=== PATIENT | female | born 1990 | race Asian ===

== ENCOUNTER 2024-04-09 00:51 | Emergency (ER) | payer OTHER, SELFPAY ==
--- NOTE | 2024-04-09 | ECG_ITS ---
Test Reason : SOB Blood Pressure : / mmHG Vent. Rate : 068 BPM Atrial Rate : 068 BPM P-R Int : 150 ms QRS Dur : 084 ms QT Int : 368 ms P-R-T Axes : 061 056 055 degrees QTc Int : 391 ms Normal sinus rhythm Normal ECG No previous ECGs available Referred By: Generic ED Physician Electronically Signed By:JUDY BEE MD
--- NOTE | ~2024-04-09 | XR_ITS ---
CLINICAL HISTORY: sob 1 view chest x-ray. Comparison: None Findings: The lungs appear clear. There is no consolidation, effusion, or pneumothorax. Cardiomediastinal silhouette is within normal limits. IMPRESSION: No acute cardiopulmonary abnormality. This document has been electronically signed by: Johnathon Loco MD on 04/09/2024 02:44:58
[2024-04-09 00:55] VITALS: BP 102/66; PULSE 87; O2SAT 98
[2024-04-09 01:01] VITALS: BP 108/69; PULSE 76; RESP 16; TEMP 36.9; O2SAT 100; BMI 25.2
[2024-04-09 01:29] LABS: Basophils Percent Auto 0.5 % (0-2); Eosinophils Absolute Auto 0.1 X10*3/uL (0.0-0.4); Eosinophils Percent Auto 0.9 % (0-4); Hematocrit 38.7 % (37.0-47.0); Hemoglobin 13.4 g/dl (12.0-16.0); Imm Gran Abs Auto 0.01 X10*3/uL (0.00-0.03); Imm Gran Pct Auto 0.2 % (0.0-0.4); Lymphocytes Absolute Auto 1.8 X10*3/uL (1.2-4.9); Lymphocytes Percent Auto 26.7 % (20-40); MANUAL DIFF FLAG NO; Mean Corpuscular HGB Conc 34.6 g/dl (31.0-35.0); Mean Corpuscular Volume 86.8 fL (80.0-98.0); Mean Platelet Volume 10.3 fL (9.4-12.3); Monocytes Absolute Auto 0.5 X10*3/uL (0.1-1.2); Monocytes Percent Auto 7.7 % (2-11); Neutrophils Absolute Auto 4.3 x10*3/uL (2.0-8.3); Platelet Count 189 X10*3/uL (160-400); Red Blood Count 4.46 X10*6/uL (4.20-5.50); Red Cell Distribution Width 13.1 % (11.0-16.0); White Blood Count 6.7 X10*3/uL (4.8-10.8)
[2024-04-09 01:46] LABS: Alanine Aminotransferase 11 U/L (0-31); Anion Gap 9 (12-20); Aspartate Amino Transferase 16 U/L (5-31); Bilirubin Total 0.5 mg/dL (0.0-1.0); Blood Urea Nitrogen 14 mg/dL (9-16); Carbon Dioxide 22 mmol/L (22-29); Chloride 109 mmol/L (96-108); Creatinine Clr Calc Pharmacy 108.4; Estimated Glomerular Filt Rate > 60; Glucose Random 119 mg/dL (60-115); Potassium 3.7 mmol/L (3.3-5.1); Sodium 136 mmol/L (135-145); Total Protein 6.5 g/dL (6.5-8.0)
[2024-04-09 01:50] LABS: Troponin-I High Sensitivity < 2.7 ng/L (<3.5-17.0)
[2024-04-09 02:06] LABS: Influenza A PCR NEGATIVE (Negative); Influenza B PCR NEGATIVE (Negative); Resp Syncy Virus RNA Qual PCR NEGATIVE (Negative); SARS COV2 PCR INHOUSE NEGATIVE (Negative)
[2024-04-09 02:35] LABS: Alkaline Phosphatase 41 U/L (39-117)
[2024-04-09 03:45] VITALS: BP 112/70; PULSE 69; RESP 16; TEMP 36.9; O2SAT 97
[2024-04-09 06:17] VITALS: BP 103/58; PULSE 55; RESP 16; TEMP 36.9; O2SAT 100
--- NOTE | 2024-04-09 07:23 | PC.NURSE ---
repeat troponin obtaine/sent to lab.
--- NOTE | 2024-04-09 07:23 | PC.NURSE ---
this RN resumed care of pt at 0645. a&ox4. vss and up to date. nsr on the retail loan officer. pt presents to the ED c/o dyspnea/dizziness/lightheadedness that occurred while pt was getting ready to go to bed. pt reports hx of vertigo but denies any syncopal episode. 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 repeat troponin obtained/sent to lab. pt still verbalizes feeling sob. no sob/wob noted. pt positioned upright to promote patent airway. respirations even/unlabored. lights dimmed to promote comfort. plan of care ongoing. call winston placed within reach.
--- NOTE | 2024-04-09 07:40 | ED.GENADULT ---
HPI - General Adult General Chief complaint: General Medical Stated complaint: diff breathing, dizziness, weakness, near syncope Time Seen by Provider: 04/09/24 06:32 Source: patient Mode of arrival: ambulatory Limitations: no limitations History of Present Illness ED Provider: Sophia Newton APRN HPI narrative: 33 yo female with history of vertigo presents the ER with complaints of episode of shortness of breath with associated right arm numbness, dizziness and nausea at 1230am which lasted for approximately 10-15 minutes while at rest. There was no associated Headache, chest pain, vomiting, diaphoresis. No fevers, chills, leg swelling or leg pain. Patient reports she had RSV a few weeks ago and still has a lingering cough and feels like she has fluid in her ears. She also reports that she has been having some bloating and constipation over the last week. No abdominal pain for vomiting. She reports that this has been a chronic problem for her and she did take some tea with cumin last night to help her move her bowels. Patient denies any sick contact. No recent travel. No oral hormone use. Related Data Previous Rx's ?Medication ?Instructions ?Recorded docusate sodium 100 mg capsule 100 mg PO DAILY #30 caps 04/09/24 (Colace) fluticasone propionate 50 1 spray intranasal DAILY #16 grams 04/09/24 mcg/actuation nasal spray,suspension (Flonase Allergy Relief) polyethylene glycol 3350 17 17 g PO DAILY #238 grams 04/09/24 gram/dose oral powder (Miralax) psyllium husk 3.4 gram/5.4 gram 1 tbsp PO DAILY #660 grams 04/09/24 oral powder (Metamucil) Allergies Allergy/AdvReac Type Severity Reaction Status Date / Time No Known Allergies Allergy Verified 04/09/24 01:02 Review of Systems Review of Systems: Yes all other systems are reviewed and are negative Constitutional: Constitutional: Reports no additional constitutional complaints, Denies body ache(s), Denies chills, Denies fever(s), Denies headache(s) and Reports weakness Eyes: Eyes: Reports no additional eye complaints and Denies change in vision ENT: Reports system reviewed and no additional complaints, except as documented, Reports dizziness, Denies headache(s), Denies nasal congestion, Denies nasal discharge and Denies neck pain Cardiovascular: Cardiovascular: Reports no additional cardiovascular complaints, Denies chest pain, Denies leg edema and Reports dyspnea Respiratory: Respiratory: Reports no additional respiratory complaints, Reports cough and Reports dyspnea Gastrointestinal: Gastrointestinal: Reports no additional gastrointestinal complaints, Denies abdominal pain, Reports constipation, Denies diarrhea, Denies nausea and Denies vomiting Genitourinary: Genitourinary: Reports no additional female genitourinary complaints and Denies urinary incontinence Musculoskeletal: Musculoskeletal: Reports no additional musculoskeletal complaints, Denies back pain, Denies arthralgias, Denies joint swelling, Denies neck pain, Reports numbness and Denies tingling Integumentary/Breasts: Skin/Breast: Reports system reviewed and no additional complaints, except as docu and Denies rash Neurologic: Reports system reviewed and no additional complaints, except as documented, Denies Abnormal speech present, Reports dizziness, Denies headache(s), Reports numbness, Denies tingling and Reports weakness PMFSH Past Medical History Attestation statement: The following information was validated with the patient. Source: old records reviewed and nursing notes reviewed Social History Social History Smoked in Last 30 Days: No Use of substances other than those prescribed or required for medical reasons: No Advance Directives: No Do you have a plan to hurt others: No Plan Patient : No Physical Exam ED Vital Signs: Vital Signs - 24 hr 04/09/24 01:01 04/09/24 03:45 04/09/24 06:17 Temperature 98.5 F 98.4 F 98.4 F Pulse Rate 76 69 55 Respiratory Rate 16 16 16 Blood Pressure 108/69 112/70 103/58 L Pulse Oximetry 100 97 100 Oxygen Delivery Method Room Air Room Air Room Air 04/09/24 08:08 Temperature 98.4 F Pulse Rate 55 Respiratory Rate 16 Blood Pressure 103/58 L Pulse Oximetry 100 Oxygen Delivery Method Room Air BMI result Body Mass Index 25.2 Const General: cooperative, healthy appearing, comfortable and no acute distress Orientation/consciousness: patient oriented x3 Limitations: no limitations HENMT Head: Yes normal to inspection Ears: hearing grossly normal bilaterally and TM abnormal (bilateral) bulging; not erythematous General nose exam: Normal external nose present Face and sinus: Yes normal facial exam Mouth: Normal oral and palatal mucosa present Throat: Yes posterior oropharynx normal, Yes tonsils normal and Yes uvula midline Eyes General: appearance normal, both eyes and all related structures Pupils: Equal, round and reactive pupils present Neck Neck: Yes normal visual inspection, Yes full ROM, Yes no lymphadenopathy and Yes no meningeal signs Chest Chest palpation & inspection: normal inspection of the chest Resp Effort & Inspection: normal respiratory effort Auscultation: clear to auscultation bilaterally Cardio Rate: regular rate Rhythm: regular rhythm Peripheral pulses: Peripheral pulses 2+ throughout GI Inspection: Yes normal to inspection Palpation (GI): Soft to palpation and nontender Auscultation: normal bowel sounds Back/Spine/Pelvis Thoracic/Lumbar Spine: thoracic and lumbar spine normal to inspection Skin General skin exam: no rashes or lesions noted Neuro General: patient oriented x3, moves all extremities, no meningeal signs, no focal motor deficits and normal sensation to monofilament Cranial nerves: Yes CN's II-XII intact bilaterally, Yes Equal, round and reactive pupils present, Yes Bilaterally intact EOM present, Yes Nystagmus not present, Yes Normal facial strength present and Yes Midline tongue present Cognition (Neuro): normal cognition Speech: No Abnormal speech present Gait exam (Neuro): Normal gait present Motor exam (neuro): 5/5 motor strength present throughout Sensory Exam: Normal double simultaneous stimulation for sensation Extrem General: Yes normal to inspection, Yes no pedal edema and Yes no calf tenderness Course Course Course Narrative: Troponin x2 are flat. EKG is nonischemic. Doubt ACS. Chest x-ray shows no acute finding. Additional labs are negative. Patient has had no symptoms since being here. Recommend she follow up outpatient with the primary care doctor. Reviewed worrisome signs and symptoms of when to return to the emergency room. Comfortable plan for discharge home Medical Decision Making Medical Decision Making MDM Narrative: 33 yo female with history of vertigo here with multiple complaints. 1) Episode of SOB, right arm numbness, dizziness and nausea which occurred at rest for 10-15 min >6 hrs ago. All symptoms resolved. No other associated symptoms. Seems atypical for ACS symptoms are nonexertional and resolved. However I will send troponin x2 and she will have an EKG. PE is less likely as her perc is 0 and she has no risk factors for same. 2) continued cough status post viral infection with fluid in ears. Will send chest x-ray. Lungs are clear. Patient has eustachian tube dysfunction with no evidence of AOM. She takes Claritin daily. Will add Flonase 3) chronic constipation and bloating with no focal abdominal pain. Abdomen is soft nondistended with normal bowel sounds. Recommended bowel regimen. Low suspicion for SBO Differential Diagnosis Differential Diagnoses: The differential diagnosis associated with the presentation includes ACS, PE Low suspicion for aortic dissection, pneumonia Admission/Observation Consideration of admission/observation: Escalation of care including admission/observation considered Lab Data MDM Lab Attestation statement: I reviewed the patient's lab results. 04/09/24 01:24 04/09/24 01:24 Labs: Lab Results 04/09/24 04/09/24 Range/Units 01: 07:21 WBC 6.7 (4.8-10.8) X10*3/uL RBC 4.46 (4.20-5.50) X10*6/uL Hgb 13.4 (12.0-16.0) g/dl Hct 38.7 (37.0-47.0) % MCV 86.8 (80.0-98.0) fL MCH 30.0 (27.0-33.0) pg MCHC 34.6 (31.0-35.0) g/dl RDW 13.1 (11.0-16.0) % Plt Count 189 (160-400) X10*3/uL MPV 10.3 (9.4-12.3) fL Immature Gran % (Auto) 0.2 (0.0-0.4) % Neut % (Auto) 64.0 (45-73) % Lymph % (Auto) 26.7 (20-40) % [place] % (Auto) 7.7 (2-11) % Eos % (Auto) 0.9 (0-4) % Baso % (Auto) 0.5 (0-2) % Lymph # (Auto) 1.8 (1.2-4.9) X10*3/uL [place] # (Auto) 0.5 (0.1-1.2) X10*3/uL Eos # (Auto) 0.1 (0.0-0.4) X10*3/uL Baso # (Auto) 0.0 (0.0-0.2) X10*3/uL Abs Immat Gran (auto) 0.01 (0.00-0.03) X10*3/uL Absolute Neuts (auto) 4.3 (2.0-8.3) x10*3/uL Absolute Nucleated RBC 0.000 (0.0-0.012) X10*3/uL Nucleated RBC % (auto) 0.0 (0.0-0.2) /100WBC Sodium 136 (135-145) mmol/L Potassium 3.7 (3.3-5.1) mmol/L Chloride 109 H (96-108) mmol/L Carbon Dioxide 22 (22-29) mmol/L Anion Gap 9 L (12-20) BUN 14 (9-16) mg/dL Creatinine 0.68 (0.5-1.4) mg/dL Estim Creat Clear Calc 108.4 Estimated GFR > 60 Random Glucose 119 H (60-115) mg/dL Calcium 9.0 (8.4-10.2) mg/dL Total Bilirubin 0.5 (0.0-1.0) mg/dL AST 16 (5-31) U/L ALT 11 (0-31) U/L Alkaline Phosphatase 41 (39-117) U/L Troponin I High Sens < 2.7 < 2.7 (<3.5-17.0) ng/L Total Protein 6.5 (6.5-8.0) g/dL Albumin 4.0 (3.5-5.0) g/dL Influenza Type A (PCR) NEGATIVE (Negative) Influenza Type B (PCR) NEGATIVE (Negative) RSV RNA Qual (PCR) NEGATIVE (Negative) SARS-CoV-2 RNA (RT-PCR) NEGATIVE (Negative) Independent Interpretation I performed an independent interpretation of an: EKG and Plain X-Ray Interpretation: I independently viewed the x-ray and agree with the radiology report I independently viewed the EKG which shows normal sinus rhythm with a rate of 68, normal PA, normal QRS, normal QT Radiology Impression Discussion of test interpretation with radiology: I have reviewed the radiologist's reading. Radiologist Impression: [address] [address] XRay Report Signed Patient: Jet Real MR#: [id number] : 1990 Acct:[id number] Age/Sex: 33 / F ADM Date: 04/09/24 Loc: HO.ED Attending Dr: Ordering Physician: Gabe ED Physician Date of Service: 04/09/24 Procedure(s): XR chest 1V Accession Number(s): [id number] cc: Generic ED Physician; Jelly Haque MD~ CLINICAL HISTORY: sob 1 view chest x-ray. Comparison: None Findings: The lungs appear clear. There is no consolidation, effusion, or pneumothorax. Cardiomediastinal silhouette is within normal limits. IMPRESSION: No acute cardiopulmonary abnormality. This document has been electronically signed by: Johnathon Loco MD on 04/09/2024 02:44:58 Tests considered The following testing was considered but not selected: CTA-see discussion above Discharge Plan Discharge Clinical Impression: Dyspnea, Constipation, Acute dysfunction of both eustachian tubes Patient Disposition: Home, Self-Care Instructions: Constipation (ED), Dyspnea (ED) Additional Instructions: Your labs are reassuring Your chest x-ray shows no acute finding. Your EKG is normal You were tested for flu, COVID and RSV and you are negative Please follow-up with the primary care doctor outpatient In regards to yourr constipation eat a high-fiber diet and increase fluids at home Please return for any new or worsening symptoms Prescriptions: New polyethylene glycol 3350 [Miralax] 17 gram/dose powder 17 g PO DAILY Qty: 238 0RF docusate sodium [Colace] 100 mg capsule 100 mg PO DAILY Qty: 30 0RF Metamucil 3.4 gram/5.4 gram powder 1 tbsp PO DAILY Qty: 660 0RF Rx Instructions: mix into at least 8 oz of water or juice before administering fluticasone propionate [Flonase Allergy Relief] 50 mcg/actuation spray,suspension 1 spray intranasal DAILY Qty: 16 0RF Rx Instructions: administer into each nostril Referrals: Physician,Unknown J [Primary Care Provider] - 1 week Interventions: ED Discharge Assessment Last Done: 04/09/24 08:08 Discharge Date/Time: 04/09/24 08:13 Print Language: [place]alan
[2024-04-09 07:49] LABS: Troponin-I High Sensitivity < 2.7 ng/L (<3.5-17.0)
[2024-04-09 08:08] VITALS: BP 103/58; PULSE 55; RESP 16; TEMP 36.9; O2SAT 100
== END 2024-04-09 08:13 | disposition home or self-care (01) ==
PROVIDERS: Nurse Practitioner Family; Emergency Provider Emergency Medicine
DX: R06.02 Shortness of breath (principal); R42 Dizziness and giddiness; H68.013 Acute Eustachian salpingitis, bilateral; R20.0 Anesthesia of skin; K59.00 Constipation, unspecified; Z03.818 Encounter for observation for suspected exposure to other biological agents ruled out; Z79.899 Other long term (current) drug therapy
CPT/HCPCS: 0241U; 36415; 71045; 80053; 84484; 85025; 93005; 99284

== ENCOUNTER → 2024-04-09 01:16 | Outpatient (BNV) | payer OTHER, SELFPAY | PROVIDERS: Emergency Provider Emergency Medicine; Visit Provider Internal Medicine Cardiovascular Disease | DX: R06.02 Shortness of breath (principal) | CPT/HCPCS: 93010 ==

== ENCOUNTER → 2024-04-09 01:25 | Outpatient (BNV) | payer OTHER, SELFPAY | PROVIDERS: PCP Internal Medicine; Visit Provider Radiology Diagnostic Radiology | DX: R06.02 Shortness of breath (principal) | CPT/HCPCS: 71045 ==

== ENCOUNTER 2024-04-14 08:15 | Emergency (ER) | payer OTHER, SELFPAY ==
--- NOTE | ~2024-04-14 | XR_ITS ---
EXAMINATION: XR CHEST CLINICAL INFORMATION: sob COMPARISON: None available. TECHNIQUE: Frontal view of the chest was obtained. FINDINGS: No significant abnormality is noted involving the heart, lungs, mediastinum, bony thorax or soft tissues. XR/XR chest 1V IMPRESSION: Unremarkable examination. Electronically signed by: Kirby Huddleston MD 04/14/2024 09:31 AM [facility] [place]
--- NOTE | 2024-04-14 08:22 | ED_ITS ---
HPI - General Adult General Chief complaint: Arrhythmia/Palpitations Stated complaint: Unresponsive Time Seen by Provider: 04/14/24 08:19 Source: patient, RN notes reviewed and old records reviewed Mode of arrival: ambulatory History of Present Illness ED Provider: Nadine Elise PA-C HPI narrative: 33-year-old female with a past medical history of vertigo presenting to ED complaining of sudden onset palpitations, SOB, lightheadedness/presyncope, diaphoresis, nausea, headache, and right hand numbness beginning while at rest. Admits symptoms very, lasting minutes. Denies any LOC. Patient reports recurrent intermittent episodes that have been happening multiple times throughout the day since Wednesday. Patient was evaluated in our ED on 04/09/2024 for similar symptoms, had negative workup. States was additionally seen at urgent care on 04/11/2024 and prescribed Hydroxyzine with some relief. Denies vision change/loss, vomiting, focal weakness, abdominal pain, dysuria/hematuria, CP Related Data Previous Rx's ?Medication ?Instructions ?Recorded docusate sodium 100 mg capsule 100 mg PO DAILY #30 caps 04/09/24 (Colace) fluticasone propionate 50 1 spray intranasal DAILY #16 grams 04/09/24 mcg/actuation nasal spray,suspension (Flonase Allergy Relief) polyethylene glycol 3350 17 17 g PO DAILY #238 grams 04/09/24 gram/dose oral powder (Miralax) psyllium husk 3.4 gram/5.4 gram 1 tbsp PO DAILY #660 grams 04/09/24 oral powder (Metamucil) Allergies Allergy/AdvReac Type Severity Reaction Status Date / Time No Known Allergies Allergy Verified 04/14/24 08:28 Review of Systems 2 Review of Systems: Yes all other systems are reviewed and are negative Constitutional: Constitutional: Reports as per HPI Neurologic: Denies Abnormal speech present [facility] Past Medical History Attestation statement: The following information was validated with the patient. Source: old records reviewed Social History Social History Smoked in Last 30 Days: No Use of substances other than those prescribed or required for medical reasons: No Advance Directives: No Advance Directives Information Provided: Yes Do you have a plan to hurt others: No Plan Physical Exam ED Vital Signs: Vital Signs - 24 hr 04/14/24 08:23 04/14/24 09:19 04/14/24 09:25 Temperature 98 F Pulse Rate 72 54 64 Respiratory Rate 17 Blood Pressure 108/64 93/57 L 110/59 L Pulse Oximetry 98 Oxygen Delivery Method Room Air 04/14/24 09:28 Temperature Pulse Rate 66 Respiratory Rate Blood Pressure 113/68 Pulse Oximetry Oxygen Delivery Method BMI result Body Mass Index 27.0 Const General: cooperative, healthy appearing and no acute distress Orientation/consciousness: patient oriented x3 Limitations: no limitations HENMT Head: Yes normal to inspection and Yes atraumatic Ears: hearing grossly normal bilaterally General nose exam: Normal external nose present Face and sinus: Yes normal facial exam Mouth: Normal oral and palatal mucosa present and no drooling Throat: Yes posterior oropharynx normal, Yes tonsils normal, Yes uvula midline, No uvula laterally displaced and No uvular edema Eyes General: appearance normal, both eyes and all related structures Pupils: Equal, round and reactive pupils present EOM: EOMs intact bilaterally Neck Neck: Yes normal visual inspection and Yes no meningeal signs Resp Effort & Inspection: normal respiratory effort and no respiratory distress Auscultation: clear to auscultation bilaterally, no crackles and no wheezes Cardio Rate: regular rate Heart sounds: S1 normal heart sound present and S2 normal heart sound present GI Inspection: Yes normal to inspection Palpation (GI): Soft to palpation, nontender, no guarding and not rigid General: Yes no CVA tenderness Back/Spine/Pelvis Back: no CVA tenderness Skin Rashes: no rashes Wounds: no wounds Neuro General: patient oriented x3, tone normal, moves all extremities, no meningeal signs, no focal motor deficits and CN's II-XI intact bilaterally Cranial nerves: Yes CN's II-XII intact bilaterally, Yes Equal, round and reactive pupils present and Yes Bilaterally intact EOM present Cognition (Neuro): normal cognition Speech: No Abnormal speech present Motor exam (neuro): 5/5 motor strength present throughout, Pronator motor function not present and no tremor noted Coordination: [id number] test normal Romberg Test: Negative Extrem General: Yes normal to inspection Course Course Course Narrative: 1124-- no leukocytosis. Labs otherwise reassuring. Initial troponin negative. UA with RBCs, negative. Not infected. -viral studies negative -chest x-ray unremarkable -1218--troponin x2 negative. Mi unlikely -orthostatic vital signs negative > case discussed with Cardiology, Dr. Mejía, can see patient in outpatient clinic and set up for echo/Holter monitor -TSH WNL Results discussed with patient including worrisome signs and symptoms and strict return precautions, and when to return to the emergency department. They verbalized understanding and feel safe for discharge at this time. Medications Administered Discontinued Medications Generic Name Dose Route Start Last Admin Trade Name Kristie PRN Reason Stop Dose Admin Sodium Chloride 1,000 mls @ 999 mls/hr 04/14/24 08:30 04/14/24 12:36 Ns IV 04/14/24 09:30 Infused .Q1H1M MIRIAM Infusion Medical Decision Making Medical Decision Making [facility] Narrative: 33-year-old female with a past medical history of vertigo presenting to ED complaining of sudden onset palpitations, SOB, lightheadedness/presyncope, diaphoresis, nausea, headache, and right hand numbness beginning while at rest. Admits symptoms very, lasting minutes. On exam vital signs stable, NAD, nontoxic appearing, no focal neuro deficits, lungs CTA, abdomen soft/nontender. Concern for vasovagal vs anxiety vs metabolic/infectious etiologies vs complicated migraine. Lower suspicion for ICH, CVA/TIA, meningitis/encephalitis, PE/ACS. Plan: EKG, labs, UA, orthostatics, IVF, viral testing, re-evaluate Please refer to course for remaining clinical decision making, interpretation of labs/imaging results, and discussions with consultants and/or family members. Differential Diagnosis Differential Diagnoses: The differential diagnosis associated with the presentation includes As above Admission/Observation Consideration of admission/observation: Escalation of care including admission/observation considered Consult Healthcare Provider Management of the patient was discussed with: Home Theater Experience Expert Lab Data [facility] Lab Attestation statement: I reviewed the patient's lab results. 04/14/24 09:14 04/14/24 09:14 Labs: Lab Results 04/14/24 04/14/24 04/14/24 Range/Units 09:12 09:14 10:11 WBC 4.4 L (4.8-10.8) X10*3/uL RBC 4.39 (4.20-5.50) X10*6/uL Hgb 13.0 (12.0-16.0) g/dl Hct 38.6 (37.0-47.0) % MCV 87.9 (80.0-98.0) fL MCH 29.6 (27.0-33.0) pg MCHC 33.7 (31.0-35.0) g/dl RDW 13.1 (11.0-16.0) % Plt Count 158 L (160-400) X10*3/uL MPV 10.5 (9.4-12.3) fL Immature Gran % (Auto) 0.2 (0.0-0.4) % Neut % (Auto) 64.7 (45-73) % Lymph % (Auto) 25.6 (20-40) % [place] % (Auto) 7.0 (2-11) % Eos % (Auto) 1.8 (0-4) % Baso % (Auto) 0.7 (0-2) % Lymph # (Auto) 1.1 L (1.2-4.9) X10*3/uL [place] # (Auto) 0.3 (0.1-1.2) X10*3/uL Eos # (Auto) 0.1 (0.0-0.4) X10*3/uL Baso # (Auto) 0.0 (0.0-0.2) X10*3/uL Abs Immat Gran (auto) 0.01 (0.00-0.03) X10*3/uL Absolute Neuts (auto) 2.9 (2.0-8.3) x10*3/uL Absolute Nucleated RBC 0.000 (0.0-0.012) X10*3/uL Nucleated RBC % (auto) 0.0 (0.0-0.2) /100WBC PT 11.0 (10.9-12.4) SEC INR 0.9 (0.9-1.1) Sodium 140 (135-145) mmol/L Potassium 4.2 (3.3-5.1) mmol/L Chloride 109 H (96-108) mmol/L Carbon Dioxide 28 (22-29) mmol/L Anion Gap 7 L (12-20) BUN 13 (9-16) mg/dL Creatinine 0.75 (0.5-1.4) mg/dL Estim Creat Clear Calc 98.9 Estimated GFR > 60 Random Glucose 80 (60-115) mg/dL Calcium 8.9 (8.4-10.2) mg/dL Magnesium 2.1 (1.6-2.6) mg/dL Total Bilirubin 0.5 (0.0-1.0) mg/dL Direct Bilirubin 0.1 (0.0-0.5) mg/dL AST 30 (5-31) U/L ALT 13 (0-31) U/L Alkaline Phosphatase 40 (39-117) U/L Troponin I High Sens < 2.7 (<3.5-17.0) ng/L Total Protein 6.4 L (6.5-8.0) g/dL Albumin 3.9 (3.5-5.0) g/dL TSH 1.27 (0.32-4.0) uIU/mL Urine Color Yellow Urine Appearance Clear Urine pH 6.5 (5.0-9.0) Ur Specific [place] 1.020 (1.005-1.025) Urine Protein Negative (Neg-Trace) mg/dL Urine Glucose (UA) Negative (Negative) mg/dL Urine Ketones Negative (Negative) mg/dL Urine Blood Small (1+) H (Negative) Urine Nitrite Negative (Negative) Ur Leukocyte Esterase Negative (Negative) Urine RBC 6-10 H (0-2) /HPF Urine WBC 0-5 (0-5) /HPF Ur Squamous Epith Cells 0-2 (0-2) /HPF Urine Bacteria None Seen (None Seen) Hyaline Casts 0-2 (0-2) /LPF Urine Test NEGATIVE (NEGATIVE) Influenza Type A (PCR) NEGATIVE (Negative) Influenza Type B (PCR) NEGATIVE (Negative) RSV RNA Qual (PCR) NEGATIVE (Negative) SARS-CoV-2 RNA (RT-PCR) NEGATIVE (Negative) 04/14/24 Range/Units 11:41 WBC (4.8-10.8) X10*3/uL RBC (4.20-5.50) X10*6/uL Hgb (12.0-16.0) g/dl Hct (37.0-47.0) % MCV (80.0-98.0) fL MCH (27.0-33.0) pg MCHC (31.0-35.0) g/dl RDW (11.0-16.0) % Plt Count (160-400) X10*3/uL MPV (9.4-12.3) fL Immature Gran % (Auto) (0.0-0.4) % Neut % (Auto) (45-73) % Lymph % (Auto) (20-40) % [place] % (Auto) (2-11) % Eos % (Auto) (0-4) % Baso % (Auto) (0-2) % Lymph # (Auto) (1.2-4.9) X10*3/uL [place] # (Auto) (0.1-1.2) X10*3/uL Eos # (Auto) (0.0-0.4) X10*3/uL Baso # (Auto) (0.0-0.2) X10*3/uL Abs Immat Gran (auto) (0.00-0.03) X10*3/uL Absolute Neuts (auto) (2.0-8.3) x10*3/uL Absolute Nucleated RBC (0.0-0.012) X10*3/uL Nucleated RBC % (auto) (0.0-0.2) /100WBC PT (10.9-12.4) SEC INR (0.9-1.1) Sodium (135-145) mmol/L Potassium (3.3-5.1) mmol/L Chloride (96-108) mmol/L Carbon Dioxide (22-29) mmol/L Anion Gap (12-20) BUN (9-16) mg/dL Creatinine (0.5-1.4) mg/dL Estim Creat Clear Calc Estimated GFR Random Glucose (60-115) mg/dL Calcium (8.4-10.2) mg/dL Magnesium (1.6-2.6) mg/dL Total Bilirubin (0.0-1.0) mg/dL Direct Bilirubin (0.0-0.5) mg/dL AST (5-31) U/L ALT (0-31) U/L Alkaline Phosphatase (39-117) U/L Troponin I High Sens < 2.7 (<3.5-17.0) ng/L Total Protein (6.5-8.0) g/dL Albumin (3.5-5.0) g/dL TSH (0.32-4.0) uIU/mL Urine Color Urine Appearance Urine pH (5.0-9.0) Ur Specific [place] (1.005-1.025) Urine Protein (Neg-Trace) mg/dL Urine Glucose (UA) (Negative) mg/dL Urine Ketones (Negative) mg/dL Urine Blood (Negative) Urine Nitrite (Negative) Ur Leukocyte Esterase (Negative) Urine RBC (0-2) /HPF Urine WBC (0-5) /HPF Ur Squamous Epith Cells (0-2) /HPF Urine Bacteria (None Seen) Hyaline Casts (0-2) /LPF Urine Test (NEGATIVE) Influenza Type A (PCR) (Negative) Influenza Type B (PCR) (Negative) RSV RNA Qual (PCR) (Negative) SARS-CoV-2 RNA (RT-PCR) (Negative) Independent Interpretation I performed an independent interpretation of an: EKG (my interpretation EKG normal sinus rhythm rate of 63. MT interval 140. No significant change when compared to prior. No STEMI ) and Plain X-Ray Radiology Impression Discussion of test interpretation with radiology: I have reviewed the radiologist's reading. External Record Review External record reviewed: Inpatient record, Office record, Outpatient record, Prior outpatient labs, Prior outpatient radiology, Primary care record and Outside ED record Tests considered The following testing was considered but not selected: As above Prescription Management I considered prescription management with: Other Chronic Conditions Patient?s care impacted by: Other Social Determinants Patient?s care significantly limited by Social Determinants of Health including: Other Social Determinant of Health Discharge Plan Discharge Clinical Impression: Palpitations, Episodic lightheadedness, Headache Patient Disposition: Home, Self-Care Prescriptions: No Action polyethylene glycol 3350 [Miralax] 17 gram/dose powder 17 g PO DAILY Qty: 238 0RF docusate sodium [Colace] 100 mg capsule 100 mg PO DAILY Qty: 30 0RF Metamucil 3.4 gram/5.4 gram powder 1 tbsp PO DAILY Qty: 660 0RF Rx Instructions: mix into at least 8 oz of water or juice before administering fluticasone propionate [Flonase Allergy Relief] 50 mcg/actuation spray,suspension 1 spray intranasal DAILY Qty: 16 0RF Rx Instructions: administer into each nostril Referrals: [facility] [Provider Group] - 1 week Kavon Haque MD [Primary Care Provider] - 3 days Print Language: Emirati
[2024-04-14 08:23] VITALS: BP 108/64; PULSE 72; RESP 17; TEMP 36.6; O2SAT 98; BMI 27.0
--- NOTE | 2024-04-14 08:30 | ECG_ITS ---
Test Reason : palpitation Blood Pressure : */* mmHG Vent. Rate : 63 BPM Atrial Rate : 63 BPM P-R Int : 140 ms QRS Dur : 82 ms QT Int : 362 ms P-R-T Axes : 60 56 36 degrees QTcB Int : 370 ms Normal sinus rhythm Normal ECG When compared with ECG of 09-Apr-2024 01:16, No significant change was found Referred By: Generic ED Physician Electronically Signed By: EHSAN BELTRAN
--- OUTSIDE RECORDS SUMMARY | 2024-04-14 08:46 | XMS_ITS ---
Author Name [facility] Organization Unknown History of Medication Use Medication Directions Dispensed Refills Start Date End Date Stat us meclizine (ANTIVERT) 25 MG tablet TAKE 1 TABLET (25 MG TOTAL) BY MOUTH 4 TIMES DAILY (EVERY 6 HOURS) NEEDED FOR DIZZINESS. 09/18/2022 active montelukast (SINGULAIR) 10 MG tablet Take 1 tablet (10 mg total) by mouth nightly. 07/02/2022 active ergocalciferol 42784 units Cap Take by mouth. 07/02/2022 active simethicone (Gas-X) 80 MG chewable tablet Chew. 07/02/2022 active fluconazole (diFLUcan) 150 MG tablet TAKE IF DEVELOPE UTI OR ANY FUNGAL INFECTION 09/18/2022 active fluticasone (FloNASE) 50 mcg/spray nasal spray 2 sprays into each nostril daily. 07/02/2022 active polyethylene glycol (MiraLax) 17 GM/SCOOP powder Take by mouth nightly as needed. 07/02/2022 active Problems Problem Status Onset Date Problem Type Date of Resoluti on Source Middle ear effusion, right active EncounterDiagnosisAct CCT Vertigo [facility] Chronic [facility]initis active EncounterDiagnosisAct CCT Nasal turbinate hypertrophy active EncounterDiagnosisAct [facility]
[2024-04-14] MEDS: 0.9 % Sodium Chloride 1,000 ML 999 ML IV (09:17)
[2024-04-14 09:18] LABS: MANUAL DIFF FLAG NO
[2024-04-14 09:19] VITALS: BP 93/57; PULSE 54
[2024-04-14 09:20] LABS: Basophils Percent Auto 0.7 % (0-2); Eosinophils Absolute Auto 0.1 X10*3/uL (0.0-0.4); Eosinophils Percent Auto 1.8 % (0-4); Hematocrit 38.6 % (37.0-47.0); Imm Gran Abs Auto 0.01 X10*3/uL (0.00-0.03); Imm Gran Pct Auto 0.2 % (0.0-0.4); Lymphocytes Absolute Auto 1.1 X10*3/uL (1.2-4.9); Lymphocytes Percent Auto 25.6 % (20-40); Mean Corpuscular HGB Conc 33.7 g/dl (31.0-35.0); Mean Corpuscular Hemoglobin 29.6 pg (27.0-33.0); Mean Corpuscular Volume 87.9 fL (80.0-98.0); Mean Platelet Volume 10.5 fL (9.4-12.3); Monocytes Absolute Auto 0.3 X10*3/uL (0.1-1.2); Neutrophils Absolute Auto 2.9 x10*3/uL (2.0-8.3); Neutrophils Percent Auto 64.7 % (45-73); Platelet Count 158 X10*3/uL (160-400); Red Blood Count 4.39 X10*6/uL (4.20-5.50); Red Cell Distribution Width 13.1 % (11.0-16.0); White Blood Count 4.4 X10*3/uL (4.8-10.8)
[2024-04-14 09:25] VITALS: BP 110/59; PULSE 64
[2024-04-14 09:28] VITALS: BP 113/68; PULSE 66
[2024-04-14 09:28] LABS: INTERNATIONAL NORM RATIO 0.9 (0.9-1.1)
[2024-04-14 09:41] LABS: Alanine Aminotransferase 13 U/L (0-31); Albumin Level 3.9 g/dL (3.5-5.0); Alkaline Phosphatase 40 U/L (39-117); Anion Gap 7 (12-20); Aspartate Amino Transferase 30 U/L (5-31); Bilirubin Direct 0.1 mg/dL (0.0-0.5); Bilirubin Total 0.5 mg/dL (0.0-1.0); Blood Urea Nitrogen 13 mg/dL (9-16); Calcium 8.9 mg/dL (8.4-10.2); Carbon Dioxide 28 mmol/L (22-29); Chloride 109 mmol/L (96-108); Creatinine Clr Calc Pharmacy 98.9; Estimated Glomerular Filt Rate > 60; Glucose Random 80 mg/dL (60-115); Magnesium 2.1 mg/dL (1.6-2.6); Potassium 4.2 mmol/L (3.3-5.1); Sodium 140 mmol/L (135-145); Total Protein 6.4 g/dL (6.5-8.0)
[2024-04-14 09:47] LABS: Troponin-I High Sensitivity < 2.7 ng/L (<3.5-17.0)
[2024-04-14 10:18] LABS: Appearance Urine Clear; Color Urine Yellow; Glucose Urine UA Negative (Negative); Leukocyte Esterase Urine Negative (Negative); Nitrite Urine Negative (Negative); PH 6.5 (5.0-9.0); UMIC TRIGGER UACC YES; Urine Blood Small (1+) (Negative); Urine Ketones Negative (Negative); Urine Protein Negative (Neg-Trace)
[2024-04-14 10:20] LABS: UPreg QC Valid YES; Urine Pregnancy NEGATIVE (NEGATIVE)
[2024-04-14 10:23] LABS: Influenza A PCR NEGATIVE (Negative); Influenza B PCR NEGATIVE (Negative); Resp Syncy Virus RNA Qual PCR NEGATIVE (Negative); SARS COV2 PCR INHOUSE NEGATIVE (Negative)
[2024-04-14 10:23] LABS: Bacteria Urine None Seen (None Seen); Hyaline Casts Urine 0-2 /LPF (0-2); Squamous Epithelial Cell Urine 0-2 /HPF (0-2); WBC Urine 0-5 /HPF (0-5)
[2024-04-14 12:09] LABS: Troponin-I High Sensitivity < 2.7 ng/L (<3.5-17.0)
[2024-04-14 13:06] LABS: TSH reflex Free T4 1.27 uIU/mL (0.32-4.0)
[2024-04-14 13:41] VITALS: BP 103/55; PULSE 70; RESP 18; TEMP 36.8; O2SAT 98
== END 2024-04-14 14:10 | disposition home or self-care (01) ==
PROVIDERS: Physician Assistant; Emergency Provider Emergency Medicine; PCP Student in an Organized Health Care Education/Training Program
DX: I49.9 Cardiac arrhythmia, unspecified (principal); R00.2 Palpitations; R06.02 Shortness of breath; R11.0 Nausea; R51.9 Headache, unspecified; Z79.899 Other long term (current) drug therapy; Z03.818 Encounter for observation for suspected exposure to other biological agents ruled out
CPT/HCPCS: 0241U; 36415; 71045; 80048; 80076; 81001; 81025; 83735; 84443; 84484; 85025; 85610; 93005; 99285

== ENCOUNTER → 2024-04-14 08:30 | Outpatient (BNV) | payer OTHER, SELFPAY | PROVIDERS: Emergency Provider Emergency Medicine; PCP Student in an Organized Health Care Education/Training Program; Visit Provider Internal Medicine | DX: R00.2 Palpitations (principal) | CPT/HCPCS: 93010 ==

== ENCOUNTER → 2024-04-14 08:31 | Outpatient (BNV) | payer OTHER, SELFPAY | PROVIDERS: Emergency Provider Emergency Medicine; PCP Student in an Organized Health Care Education/Training Program; Visit Provider Radiology Diagnostic Radiology | DX: R06.02 Shortness of breath (principal) | CPT/HCPCS: 71045 ==

== ENCOUNTER 2024-04-18 15:06 | Outpatient (AMB) | payer OTHER, SELFPAY ==
[2024-04-18 15:11] VITALS: BP 88/64; PULSE 61; BMI 26.4
--- NOTE | 2024-04-18 15:11 | MHC.OFFVIS ---
Vital Signs 04/18/24 15:11 Height 5 ft 2 in Weight 144 lb 2.917 oz BMI 26.4 BP 88/64 L Blood Pressure Location Lt brachial Position Sitting Pulse 61 Pulse Source Pulse Oximeter Intake Visit Reasons: WR[employer]/vertigo/ palpitations/SOB/lightheaded Intake Note: pt have been having SOB/Chest pain since 04/09 Philosophy Faculty Required: No Accompanied by: Self / Same As Patient Allergies No Known Allergies Allergy (Verified 04/14/24 08:28) Medication List - Last Reconciled 04/18/24 by Anson Sullivan NP docusate sodium (Colace) 100 mg PO DAILY fluticasone propionate 50 mcg/actuation (Flonase Allergy Relief) 1 spray intranasal DAILY hydroxyzine HCl 50 mg PO TID polyethylene glycol 3350 (Miralax) 17 grams PO DAILY HPI Comments Details: This is a 33-year-old female patient presenting for consultation regarding ongoing chest pain, shortness of breath, dizziness, numbness in her arms. Her medical history includes vertigo and PTSD. The patient was recently seen in the ER twice for similar symptoms, with negative workups, including normal EKG, normal troponin levels, normal chest x-ray, and negative orthostatic test. Patient reports that since 04/09/2024, she has been experiencing intermittent chest tightness which she notices is occurring during rest. Associated symptoms include numbness in both her arms, nausea, palpitations and dizziness. Although she denies any shortness of breath, she describes a sensation of not being able to get enough air in her lungs during these episodes. The patient believes that she has fluid in her ear and is frustrated that this has not been at rest at her PCPs visit and so she plans to have it drained in [place] when she visits. Yesterday, after workout at the gym when she was leaving, she experienced similar symptoms and had to sit in the hallway. Apparently an ambulance was called, and her blood pressure was found to be slightly low but everything else was negative. She reports her blood pressure normally is of the lower. She otherwise denies any syncope, vision changes, exertional chest pain. The patient also denies any recent illness, travel, leg swelling, or use of any new medications. [facility] Medical History Dizziness Palpitations Atypical chest pain Family History Father Heart attack Social History Alcohol intake: never Patient Tobacco Use Status: Never used Tobacco Review of Systems Const Denies chills, Denies fatigue, Denies fever(s), Denies frequent falls, Denies weakness, Denies weight gain and Denies weight loss ENT Reports dizziness Card Reports chest pain, Reports chest pain at rest, Denies leg edema, Denies lightheadedness, Reports palpitations, Reports dyspnea, Reports dyspnea on exertion and Reports orthopnea Resp Denies cough, Reports dyspnea and Reports dyspnea on exertion GI Denies bloating and Denies change in bowel habits Musc Denies muscle weakness, Denies numbness and Denies tingling Neuro Reports dizziness, Denies frequent falls, Denies numbness, Denies tingling and Denies weakness Endo Denies fatigue and Reports palpitations Physical Exam Vital Signs: Last Vital Signs Pulse 61 04/18/24 15:11 BP 80/62 L 04/18/24 15:11 BMI result Body Mass Index 26.4 Const General: cooperative, healthy appearing, comfortable and no acute distress Orientation/consciousness: patient oriented x3 HEENT Head: Yes normal to inspection Neck Neck: Yes normal visual inspection, Yes trachea midline and Yes supple Chest Chest palpation & inspection: normal inspection of the chest Resp Effort & Inspection: normal respiratory effort Auscultation: clear to auscultation bilaterally, no crackles, no rales, no rhonchi and no wheezes Cardio Jugular venous distension: no JVD Palpation: normal PMI Rate: regular rate Rhythm: regular rhythm Heart sounds: S1 normal heart sound present, S2 normal heart sound present, no click, no gallops, no murmurs and no rubs Peripheral pulses: Peripheral pulses 2+ throughout GI Inspection: Yes normal to inspection Palpation (GI): Soft to palpation Auscultation: normal bowel sounds Skin General skin exam: no rashes or lesions noted Neuro General: patient oriented x3 Extrem General: Yes normal to inspection, No no pedal edema and No calf tenderness Psych Appearance: grossly normal Mental Status: mental status grossly normal Speech and movement: Normal speech and movement present Assessment & Plan Assessment & Plan (1) Atypical chest pain: Code(s): R07.89 - Other chest pain Category: Medical (2) Palpitations: Code(s): R00.2 - Palpitations Category: Medical (3) Dizziness: Code(s): R42 - Dizziness and giddiness Category: Medical Plan Today, the patient's blood pressure was slightly low at 88/62, recommended her to increase her fluid and salt intake. To further evaluate her symptoms, we will arrange for a Holter monitor to assess for any potential arrhythmias. Additionally, a treadmill stress test will be performed to rule out any ischemic changes, and an echocardiogram to assess for any structural abnormalities. Follow-up after the completion of the test. In the interim, patient will call us with any concerns. Advised patient to seek ER care in case of exertional chest pain not resolved upon rest, shortness of breath, palpitations, dizziness, presyncope or syncope. This note was generated using voice recognition software. While every effort has been made to ensure accuracy and proper ship self defense system [id number] operator, there may be occasional errors that could affect the content or meaning of the described symptoms. Orders: Orders ECG holter monitor 48 hour Today R00.2 - Palpitations, R07.89 - Other chest pain CA stress test Today R07.89 - Other chest pain CA echo transthoracic complete Today R42 - Dizziness and giddiness Medications: New hydroxyzine HCl 50 mg PO TID 90 tabs 0RF Discontinued psyllium husk (Metamucil) mix into at least 8 oz of water or juice before administering Discontinued Reason: Entered in error 1 tbsp PO DAILY 660 grams 0RF Coding Level of Care Code New Pt Level 4 (87698) Diagnoses Atypical chest pain R07.89 Palpitations R00.2 Dizziness R42 Time Spent (min) 32 Comment Time spent in reviewing the chart, test results, assessment, counseling and documentation.
== END 2024-04-18 16:09 | disposition home or self-care (01) ==
PROVIDERS: PCP Student in an Organized Health Care Education/Training Program
DX: R07.89 Other chest pain (principal); R00.2 Palpitations; R42 Dizziness and giddiness
CPT/HCPCS: 99204

== ENCOUNTER → 2024-04-18 15:06 | Outpatient (BNVA) | payer OTHER, SELFPAY | PROVIDERS: PCP Student in an Organized Health Care Education/Training Program | DX: R07.89 Other chest pain (principal); R00.2 Palpitations; R42 Dizziness and giddiness | CPT/HCPCS: 99202 ==

== ENCOUNTER → 2024-04-27 08:06 | Outpatient (REF) | payer OTHER, SELFPAY ==
--- NOTE | 2024-04-27 08:09 | CA_ITS ---
Transthoracic Echocardiogram Patient (Last, First, Middle): Jet Real, Gender: Female Date of : 1990 Age: 33 Procedure Date: 04/27/2024 Procedure Type: Transthoracic Echocardiogram Location: OP Height: 157.48 cm Weight: 65.32 kg BSA: 1.66 m2 Heart Rate: bpm BP: 92 / 58 mmHg Conservation Science Officer: TO Referring MD: Anson Sullivan NP Detailer Furniture: Newton Geiger MD Symptoms: R42 - Dizziness and giddiness Study Quality: Adequate ECG Rhythm: Sinus Conclusions: - Normal study Findings Left Ventricle Normal left ventricular size, thickness, and systolic function. The visually estimated ejection fraction is between 55-60%. Diastolic function is normal for age. Peak GLS is -21.4% within normal limits Right Ventricle Normal right ventricular cavity size and systolic function. Atria Both atria are normal in size. There is no evidence of interatrial shunt. Aortic Valve Normal aortic valve structure and function. There is no aortic valve stenosis. There is no aortic valve regurgitation. Mitral Valve Normal mitral valve structure and function. There is trace mitral valve regurgitation. There is no mitral valve stenosis. Tricuspid Valve Likely normal tricuspid valve structure and function. Tricuspid regurgitation envelope is inadequate for calculation of right ventricular systolic pressure. Normal right atrial pressure. Great Vessels All visible segments of the aorta are normal in size. The visualized portions of the pulmonary artery and branches are normal. Venous The inferior vena cava is normal in size and collapses greater than 50% with inspiration. Pericardium/Pleural There is no evidence of pericardial effusion. Prior Study Comparison No prior study available for comparison. Measurements 2D Linear Measurements IVSd: 0.78 0.6-0.9/0.6-1.0 cm LVIDd: 4.23 3.9-5.3/4.2-5.9 cm LVIDd Index: 2.55 2.4-3.2/2.2-3.1 cm/m2 LVIDs: 2.92 2.0-3.6 cm LVPWd: 0.75 0.7-1.1 cm LA Diam: 2.80 2.7-3.8/3.0-4.0 cm LAIDs Index: 1.69 1.5-2.3 cm/m2 LV Mass: 120.55 67-162/88-224 g LV Mass Index: 72.62 43-95/49-115 g/m2 LVOT Diam: 2.00 3.0+(-)1.3 cm 2D Systolic Function EF 4C: 56.40 >55% EF 2C: 62.50 >55% EF BiP: 58.40 >55% Mitral Valve MV Pk E: 0.58 MV PK A: 0.25 MV Decel Time: 175.00 E/A: 2.30 E'Lateral: 13.90 E'Medial: 11.60 E/E' Med: 5.00 E/E' Lat: 4.20 PHT: 51.00 MVA PHT: 4.31 Decel Juab: 3.31 Aortic Valve AoV Pk Tru: 1.06 AoV Mn Tru: 0.73 AoV VTI: 0.20 AoV Pk Grad: 4.00 Aov Mn Grad: 2.00 MARLYN Cont.VTI: 2.53 LVOT LVOT Pk Tru: 0.76 LVOT Mn Tru: 0.47 LVOT VTI: 0.16 LVOT Pk Grad: 2.00 LVOT Mn Grad: 1.00 LVOT Diam: 2.00 LVOT Area: 3.14 Diastolic Function MV Pk E: 0.58 MV Pk A: 0.25 E/A: 2.30 E'Medial: 11.60 E/E' Med: 5.00 E' Laterial: 13.90 E/E' Lat: 4.20 Right Ventricle TAPSE (mm): 24.00 TVS' Tru: 11.30 Tricuspid Valve RA Press: 8.00 Great Vessels Aorta Sinus of Valsalva: 2.62 2.0-3.5 cm Updated in Other Vendor System with Status of Final Newton Geiger MD electronically signed on 04/27/2024 3:14:47 PM with status of Final
--- NOTE | 2024-04-27 08:09 | CA_ITS ---
Acquisition Time: 2024-04-27 08:58:22 Total Exercise Time: 00:09:00 Test Indications: CP Medications: CADENCE H&P Protocol: ANTHONY Max HR: 160 BPM 84% of Pred: 189 BPM Max BP: 128/72 mmHG Max Work Load: 10.1 METS Exercise Stress Test with exercise 9 mins of Anthony Protocol, achieving 84% MPHR, with mild SOB, no chest discomfort, with isolated PACs, with normotensive response to exercise. Without EKG changes meeting criteria for ischemia. In recovery, breathing returned to baseline. Test reviewed with Dr. Geiger. Referred By: Anson Sullivan Electronically Signed By: Anson Sullivan
== END ==
LOC: HO.CARD 08:06
DX: R07.89 Other chest pain (principal); R42 Dizziness and giddiness; R00.2 Palpitations
CPT/HCPCS: 93017; 93225; 93306

== ENCOUNTER → 2024-04-27 08:09 | Outpatient (BNV) | payer OTHER, SELFPAY | DX: R42 Dizziness and giddiness (principal); R06.02 Shortness of breath; I49.1 Atrial premature depolarization | CPT/HCPCS: 93016; 93018; 93350; 93356 ==

== ENCOUNTER 2024-07-10 09:11 | Outpatient (AMB) | payer OTHER, SELFPAY ==
[2024-07-10 09:13] VITALS: BP 94/50; PULSE 66; BMI 25.4
--- NOTE | 2024-07-10 09:13 | A.OFFVIS_ITS ---
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 On last visit her blood pressure was low and she was instructed to increase her fluid and salt intake. A Holter monitor, stress test and echocardiogram were ordered and she now presents for follow-up. Today she reports she is feeling much better overall. She now feels that her symptoms were related to high stress levels. She has taken actions to reduce the stress in her life. She describes herself as very busy with working and the care of her 6-year-old child and her mother. No current issues with chest discomfort, heart palpitations, lightheadedness. She has been increasing her fluid and salt intake. She tries to exercise routinely. She has no cardiac concerns today. [facility] Medical History Dizziness Palpitations Atypical chest pain Family History Father Heart attack Social History Alcohol intake: never Patient Tobacco Use Status: Never used Tobacco Review of Systems Const All systems reviewed & are unremarkable except as noted in HPI and below ENT Denies dizziness Card Denies chest pain, Denies chest pain at rest, Denies chest pain with activity, Denies rapid heart rate, Denies pedal edema, Denies edema, Denies leg edema, Denies lightheadedness, Denies palpitations, Denies dyspnea, Denies dyspnea on exertion and Denies orthopnea Resp Denies cough, Denies dyspnea and Denies dyspnea on exertion GI Denies hematochezia and Denies change in stool character Musc Denies abnormal gait, Denies limited range of motion, Denies muscle cramps, Denies muscle weakness, Denies numbness, Denies radiating pain into limb, Denies stiffness and Denies tingling Neuro Denies abnormal gait, Denies dizziness, Denies numbness and Denies tingling Endo Denies palpitations Physical Exam Vital Signs: Last Vital Signs Pulse 66 07/10/24 09:13 BP 94/50 L 07/10/24 09:13 BMI result Body Mass Index 25.4 Const General: cooperative, healthy appearing, comfortable and no acute distress Orientation/consciousness: patient oriented x3 Neck Neck: Yes normal visual inspection Resp Effort & Inspection: normal respiratory effort Auscultation: clear to auscultation bilaterally, no crackles, no rales, no rhonchi and no wheezes Cardio Rate: regular rate Rhythm: regular rhythm Heart sounds: S1 normal heart sound present, S2 normal heart sound present, no gallops, no murmurs and no rubs Neuro General: patient oriented x3 Extrem General: Yes normal to inspection Psych Appearance: grossly normal Mental Status: mental status grossly normal Speech and movement: Normal speech and movement present Assessment & Plan Assessment & Plan (1) Atypical chest pain: Code(s): R07.89 - Other chest pain Category: Medical Plan: Prior reports of atypical chest discomfort. She has a low cardiac risk profile. Her EKG was not ischemic. Exercise stress test 04/27/2024 with exercise 9 minutes, mild shortness of breath, no EKG changes of ischemia. Echocardiogram showed normal study. Test results reviewed with her. She is no longer having symptoms. Review stress reduction activities as well as signs and symptoms of angina. Cardiology follow-up PRN. (2) Palpitations: Code(s): R00.2 - Palpitations Category: Medical Plan: Prior reports of heart palpitations. A Holter monitor was done on 04/27/2024 for 2 days showing sinus rhythm with occasional PACs. Reviewed this with her. She may feel extrasystoles at times. Offered reassurance. Plan Time spent on chart review, documentation, interview and assessment Coding Level of Care Code Est Pt Level 3 (24486) Diagnoses Atypical chest pain R07.89 Palpitations R00.2 Time Spent (min) 24
--- OUTSIDE RECORDS SUMMARY | 2024-07-10 10:12 | XMS_ITS | Encounter Summary ---
Author Organization [facility] Address [address] [place] [address] Care Team Providers Care Windmill Mechanic Name Role Phone Luba Joseph APRN Primary Care Provider Un available Luba Joseph APRN Unavailable Unavaila ble Encounter Details Date Type Department Care Team (Late st Contact Info) Description 10/01/2022 Scanned Document [facility] Department of Internal Medicine [place] [address] [place] [address] Luba Joseph APRN *need valid address Social History Tobacco Use Types Packs/Day Years Used Date Smoking Tobacco: Never Assessed Sex and Gender Information Value Date Recorded Sex Assigned at Female 05/06/2022 11:09 AM EST Gender Identity Female 05/06/2022 11:09 AM EST Sexual Orientation Heterosexual (straight) 05/06 11:09 AM EST documented as of this encounter Plan of Treatment Not on file documented as of this encounter Visit Diagnoses Not on filedocumented in this encounter Care Teams Windmill Mechanic Relationship Specialty Start Date End Date Luba Joseph APRN PCP - General Internal Medicine 08/26/22 11/16/23 Luba Joseph APRN Internal Medicine 08/25/22 11/16/23 documented as of this encounter
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
--- OUTSIDE RECORDS SUMMARY | 2024-07-10 10:12 | XMS_ITS | Encounter Summary ---
Author Organization [facility] Address [address] [place] [address] Care Team Providers Care Science Interpreter Name Role Phone Jelly Haque MD Primary Care Provider [phone] Reason for Visit * Reason Onset Date Comments information needed 03/24/2024 Encounter Details Date Type Department Care Team ([facility] Contact Info) Description 03/24/2024 Nurse Triage Adult Medicine [address] [phone] Jelly Haque MD [address] [place] [phone] information needed Social History Tobacco Use Types Packs/Day Years Used Date Smoking Tobacco: Never Assessed Smokeless Tobacco: Never Alcohol Use Standard Drinks/Week Comments Never 0 (1 standard drink = 0.6 oz pur e alcohol) Comments Unknown Sex and Gender Information Value Date Recorded Sex Assigned at Not on file Legal Sex Female 8:20 AM EST Gender Identity Not on file Sexual Orientation Not on file documented as of this encounter Progress Notes * Kelly Dsouza RN - 03/27/2024 4:12 PM EST Pt. Had cold like symptoms 10 days ago and now has sinus pain and pressure with a very dry mouth, no ear pain or sore throat, no fever or chills . When asked, she sts her throat is very very dry and she is always thirsty, no n/v or diarrhea , no fever or chills, no bladder pressure or burning but does states she feels she is urinating more. No blurred vision now but sts she did experience that recently. She denies lightheadedness,cp,sob at present time she is talking in full sentences without apparent difficulties . When asked if sob she states sometimes I feel I have to catch my breath nosob at present time or feelings of need to catch her breath. We discussed being seen at a urgent car e. Pt. Will wait for tomorrows appointment . Apt. made for tomorrow and advised if worsening symptoms to call the office or be seen in UC or ED. Pt. agrees * Kelly Dsouza RN - 03/27/2024 4:08 PM EST Reason for Disposition ? ? [1] Sinus congestion (pressure, fullness) AND [2] present > 10 days Protocols used: Sinus Pain or [id number] * Hayden Iverson - 03/27/2024 3:33 PM EST Pt is calling has been dealing with sx for days, is asking to speak to nurse * Kisha Amaya - 03/24/2024 4:43 PM EST Pt called today to ask if the drJosselyn Will prescribe a nasal spray and claritin. Her allergies are verybad, nose bleeds. Pts pharmacy is [facility] [address]. Please advise documented in this encounter Plan of Treatment Upcoming Encounters Date Type Department Care Team (Late st Contact Info) Description 09/08/2024 1:30 PM EDT Office Visit Adult Medicine [address] [address] Jelly Haque MD [address] [place] [phone] documented as of this encounter Visit Diagnoses Not on filedocumented in this encounter Care Teams Science Interpreter Relationship Specialty Start Date End Date Jelly Haque MD [address] [place] [address] PCP - General 04/01/23 documented as of this encounter
--- OUTSIDE RECORDS SUMMARY | 2024-07-10 10:12 | XMS_ITS | Encounter Summary ---
Author Organization [facility] Address [address] [facility] [place] [facility] [place] [address] Care Team Providers Care Desk Pens Assembler Name Role Phone Jelly Haque MD Primary Care Provider [phone] Arina Mares MOLDER HELPER Unavailable Unavailable Norma Delcid MD Unavailable Unavailable Encounter Details Date Type Department Care Team Description 11/17/2023 Transfer Records Medical Records [address] [place] [address] Abstract, Provider Social History Tobacco Use Types Packs/Day Years Used Date Smoking Tobacco: Some Days Cigarettes Passive Smoke Exposure: Never Smokeless Tobacco: Never Comments:Hooka Alcohol Use Standard Drinks/Week Comments Never 0 (1 standard drink = 0.6 oz pur e alcohol) Sex Assigned at Date Recorded Not on file Job Start Date Occupation Industry Not on file Not on file Not on file documented as of this encounter Plan of Treatment Not on file documented as of this encounter Visit Diagnoses Not on filedocumented in this encounter Care Teams Desk Pens Assembler Relationship Specialty Start Date End Date Jelly Haque MD [address] [place] [id number] PCP - General Internal Medicine 04/01/23 Arina Mares NP [address] [place] [address] Family Practice 04/01/23 Norma Delcid MD [address] [place] [address] Internal Medicine 08/16/18 documented as of this encounter
--- OUTSIDE RECORDS SUMMARY | 2024-07-10 10:12 | XMS_ITS | Data Portability ---
Author Organization [place] [facility] Address [address] [address] Care Team Providers Care Gun Barrel Finisher Name Role Phone SAM LOUISE Primary Care Provider [phone] Assessment Encounter Date Assessment Date Assessment LastModified by Organization Details LastModified Time 06/07/2024 06/07/2024 Patient describes left-sided headache associated with flareup of PTSD. She had MRI of the brain last month showing a minimal amount of fluid in the right petrous apex. I do not believe it is related to her headache symptoms. She otherwise does not have any petrous apicitis symptoms with retro-orbital pain or chronic ear disease. She is frustrated that she continues to feel near daily fullness and pressure in her ears and often uses a Valsalva maneuver. Reassurance was given I do not recommend any specific intervention for her at this time as I attribute some of her pressure sensation to her anxiety from PTSD. She would like to continue using her allergy medication. She had allergy skin testing approximately 2 years ago which was negative, I did not recommend repeating testing at this time [email or web address] Not available 06/07/2024 13:37:29 Plan of Treatment Reminders Order Date Submit Date Provider Last Modified By Organization Details Last Modified Time Details Appointments Hearing Test 2024 02:00P M Hearing Test Not available Not available Not available New Patient 30 2024 02:30P M ABEL PARMAR PA-C Not available Not available Not available Lab None recorded . Referral None recorded . Procedures None recorded . Surgeries None recorded . Imaging None recorded . Medication Orders None recorded . Patient TargetsNo targets recorded. Patient InstructionsNo instructions recorded. Reason for Referral None Reported. Results Created Date Observation Date Name Description Value Unit Range Abnormal Flag Note LastModifiedBy Organization Detail LastModifiedTime 06/08/19 25 05/11/2024 MRI, brain , w/wo contr ast No observ ation record ed. [address] ([facility]) [address] [place], [address], 06/13/2024 11:17:47 06/08/19 25 06/07/2024 MR, angio gram, brain , w/o contr ast No observ ation record ed. [email or web address] Not Available 08/2024 13:39:05 Result Notes None recorded. Problems Name Problem SNOMED Code Status Onset Date Resolution Date Notes Provider Name and Address Organization Details Recorded Time Bilateral disorder of Eustachian tubes 1083220531263 107 Active 2024 ADY DOS SANTOS MD [address] [place] [address], [place], [address], [facility] - [facility] 13:36:01 Chronic post-trauma tic stress disorder 809046098 Active 2024 ADY DOS SANTOS MD [address] [place] [address], [place], [address], [facility] 13:36:07 Problem Notes None recorded. Procedures Surgical History None recorded. Imaging Results Imaging Date Name Status LastModified by Organiz ation Details LastModified Time 05/11/2024 MRI, brain, w/wo contrast completed [address] ([facility]) [address] [place], [address], 06/13/2024 11:17:47 06/07/2024 MR, angiogram, brain, w/o contrast completed [email or web address] Information not available 06/07/2024 13:39:05 Procedure Notes None recorded. Medical Equipment None Reported. Allergies No known drug allergies Medications Name Sig Start Date Stop Date Status Note LastModified by Organization Details LastModified Time buspirone 5 mg tablet TAKE 1 TABLET BY MOUTH 1 TIME EACH DAY. 06/07 completed Not Available Not Available Not Available cetirizine 10 mg tablet TAKE 1 TABLET BY MOUTH EVERY DAY active Not Available Not Available No t Available azithromyci n 250 mg tablet TAKE 2 TABLETS BY MOUTH TODAY, THEN TAKE 1 TABLET DAILY FOR 4 DAYS DIRECTED 06/07 completed Not Available Not Available Not Available hydroxyzine HCl 50 mg tablet TAKE 1 TABLET BY MOUTH THREE TIMES A DAY 06/07 completed Not Available Not Available Not Available methylpredn isolone 4 mg tablets in a dose pack TAKE 6 TABLETS ON DAY 1 DIRECTED ON PACKAGE AND DECREASE BY 1 TAB EACH DAY FOR A TOTAL OF 6 DAYS 06/07 completed Not Available Not Available Not Available fluticasone propionate 50 mcg/actuati on nasal spray,suspe nsion INSTILL 1 SPRAY INTO EACH NOSTRIL 1 TIME PER DAY. SHAKE GENTLY. AFTER USE, CLEAN TIP AND REPLACE CAP active Not Available Not Available No t Available amoxicillin 875 mg-potassiu m clavulanate 125 mg tablet TAKE 1 TABLET BY MOUTH TWICE A DAY FOR 5 DAYS 06/07 completed Not Available Not Available Not Available Gavilax 17 gram/dose oral powder DISSOLVE 17 GRAMS IN BEVERAGE OF CHOICE AND DRINK BY MOUTH ONCE DAILY. active Not Available Not Available No t Available Vitals Date Recorded Body height Body mass index (BMI) Body weight Provider Name and Address Organization Details Last Updated DateTime 06/07/2024 160.02 cm 26.4 kg/m2 09743.26 g Julianne Hackett [place] - [facility] 06/07/2024 13:00:48 Social History None recorded. Functional Status None recorded. Mental Status None recorded. Family History Nothing Reported. Medical History No medical history recorded. Gynecological HistoryNo gynecological history recorded. Obstetrics History GPAL:G 0 P 0 0 0 0 Past Encounters Encounter ID Performer Location Encounter Start Date Encounter Closed Date Diagnosis/Indication Diagnosis SNOMED-CT Code Diagnosis ICD10 Code Diagnosis Note [id number] ADY DOS SANTOS MD [facility] [address] [address] 06/07/2024 12:51:55 06/07/2024 13:37:39 Bilateral disorder of Eustachian tubes 9096602372 764270 H69.93 Chronic post-traumatic stress disorder 935684847 F43.12 Health Concerns Section Related Observation LastModified by Organization Detai ls LastModified Time None Recorded Concern Status LastModified by Organization Details LastModified Time None Recorded Advance Directives Directive None Recorded Payers Encounter Date Sequence Insurance Name Policy Number Policy Ortiz Covered Member ID Ortiz Member ID Guarantor Name 06/07/2024 1 [facility] - HEALTH NET PLAN (MEDICAID HMO) [place] [employer] [id number] [employer] Notes Date Note Type Note Provider Name and Address Organization Details Recorded Time 06/07/2024 text/html Right petrous ap ex lesionescorted by motherwas experiencing PTSD from [place] of [place] headache when flareuprecalls imbalance August 2022 - hearing and balance eval with her ENT at the time was normalno prior ear [place]ergy [place] negativeuses flonase, cetirizine daily 05/11/2024 MR brain noncontrast [facility] right petrous apex ADY DOS SANTOS MD [address] [place] [address], [place], [address], [place] [facility] 06/07/2024 13:37:40 OBGyn Episode No OBEpisode recorded.
--- OUTSIDE RECORDS SUMMARY | 2024-07-10 10:12 | XMS_ITS | Encounter Summary ---
Author Organization [facility] Address [address] [place] [address] Care Team Providers Care E Learning Coordinator Name Role Phone Arina Mares NP Primary Care Provider Jelly Lin MD Primary Care Provider [phone] Arina Mares NP Unavailable Unavailable Norma Delcid MD Unavailable Unavailable Reason for Visit * Reason Onset Date Comments APPOINTMENT 02/02/2020 Encounter Details Date Type Department Care Team Description 02/02/2020 Telephone Podiatry - [address] [address] Sourav Almonte DPM APPOINTMENT Social History Tobacco Use Types Packs/Day Years Used Date Smoking Tobacco: Never Smokeless Tobacco: Never Alcohol Use Standard Drinks/Week Comments No 0 (1 standard drink = 0.6 oz pur e alcohol) Sex Assigned at Date Recorded Not on file Job Start Date Occupation Industry Not on file Not on file Not on file documented as of this encounter Miscellaneous Notes * Telephone Encounter - Ivana Ewing - 02/07/2020 2:49 PM EST Yes he does do this. Please call and schedule :) * Telephone Encounter - Sourav Almonte DPM - 02/07/2020 2:08 PM EST Yes I do * Telephone Encounter - Ivana Ewing - 02/07/2020 1:16 PM EST Please advise. * Telephone Encounter - Pili Haleyleander - 02/02/2020 2:58 PM EDT Patient is calling in to schedule an appointment with Dr. Almonte for a left chevron bunionectomy. Isthis something that he will treat? Please review and advise documented in this encounter Plan of Treatment Not on file documented as of this encounter Visit Diagnoses Not on filedocumented in this encounter Care Teams E Learning Coordinator Relationship Specialty Start Date End Date Arina Mares NP PCP - General Family Practice 03/23/19 03/31/23 Jelly Haque MD [address] [place] [address] PCP - General Internal Medicine 04/01/23 Arina Mares NP Family Practice 04/01/23 Norma Delcid MD [address] [place] [address] Internal Medicine 08/16/18 documented as of this encounter
--- OUTSIDE RECORDS SUMMARY | 2024-07-10 10:13 | XMS_ITS | Encounter Summary ---
Author Organization [facility] Address [address] [place] [address] Care Team Providers Care Bread Packer Name Role Phone Luba Joseph APRN Primary Care Provider Un available Luba Joseph APRN Unavailable Unavaila ble Encounter Details Date Type Department Care Team (Late st Contact Info) Description 05/10/2023 Scanned Document [facility] of [facility] [place] [address] [place] [address] Luba Joseph APRN *need valid address Social History Tobacco Use Types Packs/Day Years Used Date Smoking Tobacco: Never Passive Smoke Exposure: Never Smokeless Tobacco: Never PHQ-2 Answer Date Recorded PHQ-2 Total Score 2 05/06/2023 Sex and Gender Information Value Date Recorded Sex Assigned at Female 05/06/2022 11:09 AM EST Gender Identity Female 05/06/2022 11:09 AM EST Sexual Orientation Heterosexual (straight) 05/06 11:09 AM EST documented as of this encounter Plan of Treatment Not on file documented as of this encounter Visit Diagnoses Not on filedocumented in this encounter Care Teams Bread Packer Relationship Specialty Start Date End Date Luba Joseph APRN PCP - General Internal Medicine 08/26/22 11/16/23 Luba Joseph APRN Internal Medicine 08/25/22 11/16/23 documented as of this encounter
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
--- OUTSIDE RECORDS SUMMARY | 2024-07-10 10:13 | XMS_ITS | Encounter Summary ---
Author Organization [facility] Address [address] [facility] [place] [address] Care Team Providers Care Report Analyst Name Role Phone Jelly Haque MD Primary Care Provider [phone] Arina Mares NP Unavailable Unavailable Norma Delcid MD Unavailable Unavailable Encounter Details Date Type Department Care Team Description 10/12/2023 Release of Information Medical Records [address] [place] [id number] Abstract, Provider Social History Tobacco Use Types [...] on file documented as of this encounter Nursing Notes * Elaina Henao - 10/12/2023 10:23 AM EDT FAXED REQUEST TO [facility] TO OBTAIN RECORDS. 10/11/23 ID# [id number] documented in this encounter Plan of Treatment Not on file documented as of this encounter Visit Diagnoses Not on filedocumented in this encounter Care Teams Report Analyst Relationship Specialty Start Date End Date Jelly Haque MD [address] [place] [address] PCP - General Internal Medicine 04/01/23 Arina Mares NP [address] [place] [address] Family Practice 04/01/23 Norma Delcid MD [address] [place] [id number] Internal Medicine 08/16/18 documented as of this encounter
--- OUTSIDE RECORDS SUMMARY | 2024-07-10 10:13 | XMS_ITS | Clinical Summary ---
Author Organization [facility] [address] [place] [address] Address [address] [place] [address] Phone Care Team Providers Care Repair Service Clerk Name Role Phone Jelly Haque MD Primary Care Provider [phone] Allergies No known active allergies Medications magnesium oxide 500 mg capsule Take by mouth daily. Active ferrous sulfate 325 mg (65 mg elemental iron) tablet Take by mouth daily. Active cetirizine (ZyrTEC) 10 mg tablet Take 1 tablet (10 mg total) by mouth 1 (one) time each day. 90 tablet 1 5 Active fluticasone propionate (FLONASE) 50 mcg/actuation nasal spray Administer 1 spray into each nostril 1 (one) time each day. Shake gently. Before first use, prime pump. After use, clean tip and replace cap. 16 g 1 5 Active hydrOXYzine HCL (ATARAX) 50 mg tablet Take 1 tablet (50 mg total) by mouth 3 (three) times a day. 90 tablet 5 Active busPIRone (BUSPAR) 5 mg tablet Take 1 tablet (5 mg total) by mouth 1 (one) time each day. 30 each 5 Active Active Problems Problem Noted Date Diagnosed Date Anxiety disorder 05/26/2024 Iron deficiency anemia 10/11/2023 Encounters Date Type Department Care Team Description 06/02/2024 Telephone Adult [facility] [address] [place], [place] [phone] Jelly Haque MD Provider Call Back 05/26/2024 4:00 PM EST Office Visit [address] [phone] Jelly Haque MD Anxiety disorder, unspecified type (Primary Dx); Ear fullness, bilateral; Mastoiditis, chronic, right 05/26/[address] [phone] Jelly Haque MD 05/26/[address] [phone] Sarah Fletcher MA Forms/questionnaires (Caregiver Medical Form) 05/11/2024 10:20 AM EST - 05/11/2024 11:59 PM EST Hospital Encounter Radiology Department - [address] [phone] Nonintractable episodic headache, unspecified headache type Discharge Disposition: Home or Self Care 05/05/2024 9:00 AM EST Office Visit [address] [phone] Jelly Haque MD Anxiety disorder, unspecified type (Primary Dx); Screening for tuberculosis 04/26/[address] [phone] Jelly Haque MD Forms/questionnaires 04/21/2024 9:00 AM EST Office Visit [address] [phone] Jelly Haque MD Anxiety disorder, unspecified type (Primary Dx); Numbness and tingling; Nonintractable episodic headache, unspecified headache type; Ear fullness, bilateral; Iron deficiency anemia, unspecified iron deficiency anemia type 04/21/[address] [phone] Jelly Haque MD Forms/questionnaires (FMLA) 04/18/2024 Telephone Adult Medicine [address] [phone] Jelly Haque MD triage from Last 3 Months Surgical History Surgery Date Site/Laterality Comments BUNIONECTOMY PROCEDURE:BUNIONECTOMY HERNIA REPAIR PROCEDURE:HERNIA REPAIR EYE SURGERY PROCEDURE:EYE SURGERY BREAST RECONSTRUCTION 08/29/2021 Bilateral PROCEDURE:BREAST RECONSTRUCTION;COMMENT:Procedure: BILATERAL BREAST AUGMENTATION; Surgeon: Benito Otto MD; Location: [facility]UL[facility]ORY SURGERY; Service: Plastics; Laterality: Bilateral; BREAST RECONSTRUCTION 08/29/2021 Right PROCEDURE:BREAST RECONSTRUCTION;COMMENT:Procedure: RIGHT UNILATERAL AUREOPEXY; Surgeon: Benito Otto MD; Location: [facility]UL[facility]ORY SURGERY; Service: Plastics; Laterality: Right; Medical History Medical History Date Comments Visual impairment DX:Visual impa irment;COMMENT:eyeglasses Family History Medical History Relation Name Comments Heart attack Father No Known Problems Mother No Known Problems Son Relation Name Status Comments Father Mother [...] on file Sexual Orientation Not on file Obstetrics History Last Filed Vital Signs Vital Sign Reading Time Taken Comments Blood Pressure 110/70 05/26/2024 4:03 PM EST Pulse 80 05/26/2024 4:03 PM EST Temperature 36.7 ??C (98.1 ??F) 05/26/2024 4:03 PM ES T Respiratory Rate 14 05/26/2024 4:03 PM EST Oxygen Saturation - - Inhaled Oxygen Concentration - - Weight 65.1 kg (143 lb 8 oz) 05/26/2024 4:03 PM EST Height 158.8 cm (5' 2.5 ) 05/26/2024 4:03 PM EST Body Mass Index 25.83 05/26/2024 4:03 PM EST Plan of Treatment Upcoming Encounters Date Type Department Care Team (Late st Contact Info) Description 09/08/2024 1:30 PM EDT Office Visit Adult Medicine [facility] [address] [place] [phone] Jelly Haque MD [address] [place] [phone] Health Maintenance Due Date Last Done Comments DTaP,Tdap,and Td Vaccines (1 - Tdap) 08/14/2011 Hepatitis B Vaccines (1 of 3 - 19+ 3-dose series) 08/14/2011 HPV Vaccines (2 - 3-dose series) 01/03/2019 12/06/2018 Cervical Cancer Screening: P ap Smear 07/19/2021 07/19/2018 Depression Screening 03/08/2022 HIV Screening 03/08/2022 Hepatitis C Screening 03/08/2022 Social Influencers of Health Screening 03/08/2022 COVID-19 Vaccine (1 - 2023-2 5 season) 2023 Influenza Vaccine (Season Ended) 2024 Cholesterol Screening (Lipid Panel) 10/26/2028 10/27/2023, 10/27/2023 HIB Vaccines Aged Out No longer eligi ble based on patient's age to complete this topic Hepatitis A Vaccines Aged Out No long er eligible based on patient's age to complete this topic IPV Vaccines Aged Out No longer eligi ble based on patient's age to complete this topic MMR Vaccines Aged Out No longer eligi ble based on patient's age to complete this topic Meningococcal ACWY Vaccine Aged Out N o longer eligible based on patient's age to complete this topic Meningococcal B Vacine Aged Out No lo nger eligible based on patient's age to complete this topic Pneumococcal Vaccine: Pediatrics (0 to 5 Years) and At-Risk Patients (6 to 64 Years) Aged Out No longer eligible b ased on patient's age to complete this topic RSV Immunization Patients Under 20 months Aged Out No longer eligible b ased on patient's age to complete this topic Varicella Vaccines Aged Out No longer eligible based on patient's age to complete this topic Medical Devices Implanted Type Area Beater Worker Helper Device Identifier Shelf Expiration Date Model / Serial / Lot Emilee Inspira Breast Implant, Smooth Round, Full Profile Implanted:Qty: 1 on 08/29/2021 by Benito Otto MD Right: Breast [employer] 11/01/2025 [facility]-345 / [id number] / Description:Brought in by Dr Josselyn Otto Christianekyramata Inspira Breast Implant, Smooth Round, Full Profile Implanted:Qty: 1 on 08/29/2021 by Benito Otto MD Left: Breast [employer] 08/03/2025 [facility]385 / [id number] / Description:Brought it by Dr Josselyn Otto Procedures Procedure Name Priority Date/Time Associated Diagnosis Comments MR BRAIN WO CONTRAST Routine 05/11/2024 11:26 AM EST Nonintractable episodic headache, unspecified headache type INTERFERON GAMMA INTERPRETATION Routine 05/05/2024 10:45 AM EST Screening for tuberculosis INTERFERON GAMMA ANTIGEN 2 Routine 05/05/2024 10:45 AM EST Screening for tuberculosis INTERFERON GAMMA ANTIGEN 1 Routine 05/05/2024 10:45 AM EST Screening for tuberculosis INTERFERON GAMMA MITOGEN Routine 05/05/2024 10:45 AM EST Screening for tuberculosis INTERFERON GAMMA NIL Routine 05/05/2024 10:45 AM EST Screening for tuberculosis INTERFERON GAMMA FOR TB, QUALITATIVE Routine 05/05/2024 10:45 AM EST Screening for tuberculosis CBC WITH AUTO DIFFERENTIAL Routine 04/21/2024 10:32 AM EST Iron deficiency anemia, unspecified iron deficiency anemia type VITAMIN D 25 HYDROXY Routine 04/21/2024 10:32 AM EST Numbness and tingling THYROID STIMULATING HORMONE WITH REFLEX TO FREE T4 AND FREE T3 Routine 04/21/2024 10:32 AM EST Numbness and tingling VITAMIN B12 AND FOLATE Routine 10:32 AM EST Numbness and tingling IRON AND TIBC Routine 04/21/2024 10:32 AM EST Iron deficiency anemia, unspecified iron deficiency anemia type FERRITIN Routine 04/21/2024 10:32 AM EST Iron deficiency anemia, unspecified iron deficiency anemia type CBC AND DIFFERENTIAL Routine 04/21/2024 10:32 AM EST Iron deficiency anemia, unspecified iron deficiency anemia type LIPID PANEL Routine 10/27/2023 HM PAP SMEAR Routine 07/19/2018 from Last 3 Months or Most Recently Relevant to Health Maintenance Results * MR Brain wo Contrast (05/11/2024 11:26 AM EST) Anatomical Region Laterality Modality Head and Neck Magnetic Resonan ce 05/11/2024 2:47 PM EST Impressions 05/11/2024 3:16 PM EST Impression: 1. No acute intracranial process. 2. Minimal fluid within the right petrous apex which could represent minimal mastoiditis -------- FINAL REPORT -------- Dictated By: Yann Funes Dictated Date: 05/11/2024 14:47 ET Assigned Physician: Yann Funes Reviewed and Electronically Signed By: Yann Funes Signed Date: 05/11/2024 15:16 ET Workstation ID: [id number] Transcribed By: Self Edit Transcribed Date: 05/11/2024 14:47 ET Narrative 05/11/2024 3:16 PM EST MRI BRAIN WITHOUT CONTRAST Clinical Statement: Headache, chronic, no new features Comparison: ??MRI brain from 02/18/2023 Technique: ??Multiplanar, multisequence MR images of the brain were obtained without contrast. Findings: ??There is no evidence of diffusion restriction. Minimal white matter hyperintensities within the supraventricular and periventricular region consistent with microvascular ischemic changes. Normal intracranial flow voids. ??The ventricular system is normal in size and morphology. ??The basilar cisterns are normal. ??The craniocervical junction is normal. ??The orbits and globes are within normal limits. ??No mucosal thickening within the paranasal sinuses. ??Minimal fluid within the right petrous apex. Procedure Note Yann Funes MD - 05/11/2024 MRI BRAIN WITHOUT CONTRAST Clinical Statement: Headache, chronic, no new features Comparison: MRI brain from 02/18/2023 Technique: Multiplanar, multisequence MR images of the brain wereobtained without contrast. Findings: There is no evidence of diffusion restriction. Minimal whitematter hyperintensities within the supraventricular and periventricularregion consistent with microvascular ischemic changes. Normal intracranialflow voids. The ventricular system is normal in size and morphology. Thebasilar cisterns are normal. The craniocervical junction is normal. Theorbits and globes are within normal limits. No mucosal thickening withinthe paranasal sinuses. Minimal fluid within the right petrous apex. IMPRESSION: Impression: 1. No acute intracranial process. 2. Minimal fluid within the right petrous apex which could representminimal mastoiditis -------- FINAL REPORT -------- Dictated By: Yann Funes Dictated Date: 05/11/2024 14:47 ET Assigned Physician: Yann Funes Reviewed and Electronically Signed By: Yann Funes Signed Date: 05/11/2024 15:16 ET Workstation ID: [id number] Transcribed By: Self Edit Transcribed Date: 05/11/2024 14:47 ET Jelly Haque MD [facility] MRI PROCEDURES Final Result * Interferon gamma interpretation (05/05/2024 10:45 AM EST) Quantiferon Plus Interpretation Negative Negative LAB CHEMISTRY METHOD 05/06/2024 2:01 PM EST [facility] Blood Venous blood specimen / Unknown Venipuncture / Unknown 05/05/2024 10:45 AM EST 05/05/2024 10:45 AM EST Jelly Haque MD LAB BLOOD ORDERABLES Final Resul t [facility] [address] [place] [address], [place] [phone] * Interferon gamma antigen 2 (05/05/2024 10:45 AM EST) Blood Venous blood specimen / Unknown Venipuncture / Unknown 05/05/2024 10:45 AM EST 05/05/2024 10:45 AM EST us Jelly Haque MD LAB BLOOD ORDERABLES Final Resul t Performing Organization Address City/[facility]/ZIP Co de Phone Number [facility] [address] [place] [address], [place] [phone] * Inteferon gamma antigen 1 (05/05/2024 10:45 AM EST) Blood Venous blood specimen / Unknown Venipuncture / Unknown 05/05/2024 10:45 AM EST 05/05/2024 10:45 AM EST Jelly Haque MD LAB BLOOD ORDERABLES Final Resul t Performing Organization Address City/[facility] Co de Phone Number [facility] [address] [place] [address], [place] [phone] * Interferon gamma mitogen (05/05/2024 10:45 AM EST) Blood Venous blood specimen / Unknown Venipuncture / Unknown 05/05/2024 10:45 AM EST 05/05/2024 10:45 AM EST us Jelly Haque MD LAB BLOOD ORDERABLES Final Resul t Performing Organization Address City/[facility] Co de Phone Number [facility] [address] [place] [address], [place] [phone] * Interferon gamma NIL (05/05/2024 10:45 AM EST) Blood Venous blood specimen / Unknown Venipuncture / Unknown 05/05/2024 10:45 AM EST 05/05/2024 10:45 AM EST us Jelly Haque MD LAB BLOOD ORDERABLES Final Resul t Performing Organization Address City/[facility]/ZIP Co de Phone Number [facility] [address] [place] [address], [place] [phone] * Thyroid stimulating hormone with reflex to free t4 and free t3 (04/21/2024 10:32 AM EST) Pathologist [facility] TSH 2.38 0.40 - 4.00 mcIU/mL LAB CHEMISTRY METHOD 04/21/2024 5:05 PM EST [facility] Blood Venous blood specimen / Unknown Venipuncture / Unknown 04/21/2024 10:32 AM EST 04/21/2024 10:32 AM EST us Jelly Haque MD LAB BLOOD ORDERABLES Final Resul t Performing Organization Address [facility] Co de Phone Number [facility] [address] [place] [address], [place] [phone] * Vitamin B12 and folate (04/21/2024 10:32 AM EST) [facility] Vitamin B-12 529 250 - 900 pcg/mL LAB CHEMISTRY METHOD 04/21/2024 5:52 PM EST [facility] Folate 13.9 2.8 - 17.0 ng/ml LAB CHEMISTRY METHOD 04/21/2024 5:52 PM EST [facility] Blood Venous blood specimen / Unknown Venipuncture / Unknown 04/21/2024 10:32 AM EST 04/21/2024 10:32 AM EST us Jelly Haque MD LAB BLOOD ORDERABLES Final Resul t Performing Organization Address City/[facility]/ZIP Co de Phone Number [facility] [address] [place] [address], [place] [phone] * (ABNORMAL) CBC auto differential (04/21/2024 10:32 AM EST) Pathologist [facility] WBC 3.6(L) 4.8 - 10.8 K/mcL LAB HEMETOLOGY METHOD 04/21/2024 1:01 PM [facility] RBC 4.40 3.80 - 4.80 M/mcL LAB HEMETOLOGY METHOD 04/21/2024 1:01 [facility] Hemoglobin 13.2 11.5 - 16.0 g/dL LAB HEMETOLOGY METHOD 04/21/2024 1:01 [facility] Hematocrit 39.6 35.0 - 47.0 % LAB HEMETOLOGY METHOD 04/21/2024 1:01 [facility] MCV 89.6 79.0 - 98.0 FL LAB HEMETOLOGY METHOD 04/21/2024 1:01 [facility] MCH 29.9 27.0 - 32.0 pcg LAB HEMETOLOGY METHOD 04/21/2024 1:01 [facility] MCHC 33.3 32.0 - 37.0 g/dL LAB HEMETOLOGY METHOD 04/21/2024 1:01 [facility] RDW 12.9 11.0 - 15.0 % LAB HEMETOLOGY METHOD 04/21/2024 1:01 [facility] Platelets 214 130 - 400 K/mcL LAB HEMETOLOGY METHOD 04/21/2024 1:01 [facility] MPV 10.9 7.0 - 11.0 FL LAB HEMETOLOGY METHOD 04/21/2024 1:01 [facility] NRBC 0.0 <1.0 % LAB HEMETOLOGY METHOD 04/21/2024 1:01 [facility] NRBC Absolute 0.00 <0.10 K/mcL LAB HEMETOLOGY METHOD 04/21/2024 1:01 [facility] Neutrophils Relative 54.6 % LAB HEMETOLOGY METHOD 04/21/2024 1:01 [facility] Lymphocytes Relative 35.8 % LAB HEMETOLOGY METHOD 04/21/2024 1:01 PM [facility] Monocytes Relative 7.6 % LAB HEMETOLOGY METHOD 04/21/2024 1:01 PM [facility] Eosinophils Relative 1.1 % LAB HEMETOLOGY METHOD 04/21/2024 1:01 PM [facility] Basophils Relative 0.6 % LAB HEMETOLOGY METHOD 04/21/2024 1:01 PM [facility] Immature Granulocytes Relative 0.3 % LAB HEMETOLOGY METHOD 04/21/2024 1:01 PM [facility] Neutrophils Absolute 1.94 1.50 - 7.00 K/mcL LAB HEMETOLOGY METHOD 04/21/2024 1:01 PM [facility] Lymphocytes Absolute 1.27 1.00 - 5.00 K/mcL LAB HEMETOLOGY METHOD 04/21/2024 1:01 PM [facility] Monocytes Absolute 0.27 0.20 - 1.00 K/mcL LAB HEMETOLOGY METHOD 04/21/2024 1:01 PM [facility] Eosinophils Absolute 0.04 0.00 - 0.50 K/mcL LAB HEMETOLOGY METHOD 04/21/2024 1:01 PM [facility] Basophils Absolute 0.02 0.00 - 0.20 K/mcL LAB HEMETOLOGY METHOD 04/21/2024 1:01 PM [facility] Immature Granulocytes Absolute 0.01 0.00 - 0.03 K/mcL LAB HEMETOLOGY METHOD 04/21/2024 1:01 PM [facility] Blood Venous blood specimen / Unknown Venipuncture / Unknown 04/21/2024 10:32 AM EST 04/21/2024 10:32 AM EST us Jelly Haque MD LAB BLOOD ORDERABLES Final Resul t Performing Organization Address City/[facility]/ZIP Co de Phone Number [facility] [address] [place] [address], [place] [phone] * Iron and TIBC (04/21/2024 10:32 AM EST) [facility] Iron 117 40 - 150 mcg/dL LAB CHEMISTRY METHOD 04/21/2024 5:52 PM EST [facility] TIBC 303 250 - 450 mcg/dL LAB CHEMISTRY METHOD 04/21/2024 5:52 PM EST [facility] Iron Saturation 39 15 - 50 % LAB CHEMISTRY METHOD 04/21/2024 5:52 PM EST [facility] Blood Venous blood specimen / Unknown Venipuncture / Unknown 04/21/2024 10:32 AM EST 04/21/2024 10:32 AM EST us Jelly Haque MD LAB BLOOD ORDERABLES Final Resul t Performing Organization Address [facility]/ZIP Co de Phone Number [facility] [address] [place] [address], [place] [phone] * Vitamin D 25 hydroxy (04/21/2024 10:32 AM EST) [facility] Vit D, 25-Hydroxy 47.8 30.0 - 80.0 ng/mL LAB CHEMISTRY METHOD 04/21/2024 5:05 PM EST [facility] Blood Venous blood specimen / Unknown Venipuncture / Unknown 04/21/2024 10:32 AM EST 04/21/2024 10:32 AM EST us Jelly Haque MD LAB BLOOD ORDERABLES Final Resul t Performing Organization Address City/[facility]/ZIP Co de Phone Number [facility] [address] [place] [address], [place] [phone] * Ferritin (04/21/2024 10:32 AM EST) Ferritin 42 8 - 252 ng/mL LAB CHEMISTRY METHOD 04/21/2024 5:52 PM EST [facility] Blood Venous blood specimen / Unknown Venipuncture / Unknown 04/21/2024 10:32 AM EST 04/21/2024 10:32 AM EST Jelly Haque MD LAB BLOOD ORDERABLES Final Resul t [facility] [address] [place] [address], [place] [phone] * Lipid panel (10/27/2023) Pathologist [facility] LDL/HDL Ratio 2 0 - 4 Triglycerides 72 0 - 150 mg/dL Cholesterol 139 0 - 200 mg/dL HDL 57 >=40 mg/dL LDL Cholesterol 68 0 - 100 mg/dL Blood Venous blood specimen / Unknown Rad Chan MD LAB BLOOD ORDERABLES Carmina l Result * Pap Smear (07/19/2018) Pathologist [facility] Pap smear Abstracted, no interpretation Historical Provider HEALTH MAINTENANCE Final Result from Last 3 Months or Most Recently Relevant to Health Maintenance Insurance [facility] Care Teams Repair Service Clerk Relationship Specialty Start Date End Date Jelly Haque MD [address] [place] [address] [place] [address] PCP - General 04/01/23
== END 2024-07-10 09:33 | disposition home or self-care (01) ==
PROVIDERS: PCP Student in an Organized Health Care Education/Training Program; Visit Provider Nurse Practitioner Family
DX: R07.89 Other chest pain (principal); R00.2 Palpitations
CPT/HCPCS: 99213

== ENCOUNTER → 2024-07-10 09:11 | Outpatient (BNVA) | payer OTHER, SELFPAY | PROVIDERS: Visit Provider Nurse Practitioner Family | DX: R07.89 Other chest pain (principal); R00.2 Palpitations | CPT/HCPCS: 99212 ==